=== PATIENT | female | born 1975 | race Caucasian/White ===

== ENCOUNTER 2021-12-02 04:10 | Emergency (ER) | payer OTHER, SELFPAY ==
[2021-12-02 04:11] VITALS: BP 115/66; PULSE 63; RESP 17; TEMP 36.2; O2SAT 98; BMI 41.3
--- NOTE | 2021-12-02 04:33 | RAD_ITS ---
EXAM: XR CHEST, 1 VIEW : 1975 CLINICAL INDICATION: chest pain TECHNIQUE: Frontal view of the chest. This report was created using [employer] report generation technology. COMPARISON: 12/18/12 FINDINGS: LUNGS AND PLEURAL SPACES: Unremarkable. No consolidation or edema. No pneumothorax. No effusion. HEART: Unremarkable. Cardiac silhouette not enlarged. MEDIASTINUM: Central airways and mediastinal contour are unremarkable. BONES/JOINTS: Unremarkable. SOFT TISSUES: Unremarkable. RAD/Chest 1 View (Portable) IMPRESSION: No radiographic evidence of acute cardiopulmonary disease. at 0515 Reported and signed by: Daniele Tejeda MD Electronically Signed: Daniele Tejeda MD at 5:14 EST ,
--- NOTE | 2021-12-02 04:33 | EKG12_ITS ---
Test Reason : DYSRHYTHMIA Blood Pressure : / mmHG Vent. Rate : 054 BPM Atrial Rate : 054 BPM P-R Int : 166 ms QRS Dur : 082 ms QT Int : 480 ms P-R-T Axes : 006 019 012 degrees QTc Int : 455 ms Sinus bradycardia Otherwise normal ECG Confirmed by MEG ANTHONY, JULIA ([id number]), online editor PAGE DIAZ ([id number]) on 12/03/2021 10:11:18 AM Referred By: JEANIE Confirmed By:JULIA WAEVER MD
--- NOTE | 2021-12-02 04:34 | EX.ED.DYSGE1 ---
HPI History of Present Illness Chief Complaint: Hypertension Narrative Narrative: 46-year-old female presenting with multiple symptoms. She was concerned that her blood pressure was up yesterday and she states it was in the 130s over 80s at home. She went to her primary care's office and it did not change. She did not have the medication changes continues on her hydrochlorothiazide 25 mg p.o. daily. She states she woke up from sleep and had a leg cramp and then when she got up to start to walk she had a short time of left flank pain which resolved and then felt nauseous that she was walking down the [place]. She is describing vertiginous symptoms as she is walking. She vomited. She states after she vomited she had diarrhea. She states that this is not a typical for her to have diarrhea after vomiting. She states that she has not been ill prior to this. She does not have fever, chills. Patient states that her last meal was breakfast casserole which she had been eating for over a day. She had this for dinner. She does not have any abdominal pain. Her leg cramp is resolved. Her left flank pain has resolved. [facility] Medical History Arthritis Back pain history of knee scope Knee pain Neck pain Sleep apnea Home Medications ergocalciferol (vitamin D2) [Vitamin D2] 50,000 mcg PO QWEEK 12/02/21 [History Last Taken Unknown] escitalopram oxalate 20 mg PO DAILY 12/02/21 [History Last Taken Unknown] hydrochlorothiazide 25 mg PO DAILY 12/02/21 [History Last Taken Unknown] meclizine 25 mg PO TID PRN #30 tab 12/02/21 [Rx Last Taken Unknown] Allergy/AdvReac Type Severity Reaction Status Date / Time codeine Allergy Hives Verified 12/02/21 04:17 meperidine HCl [From Demerol] Allergy Other Verified 12/02/21 04:17 ondansetron HCl AdvReac Vomiting Verified 12/02/21 04:17 [From Zofran (as hydrochloride)] Social History Smoking Status: Never smoker alcohol intake: current alcohol intake frequency: holidays/special occasions only Alcohol type: other ROS ROS ED ROS Narrative Vertiginous dizziness Constitutional Constitutional ED: Denies chills or fever(s) Eyes Eyes: Denies blurry vision or diplopia ENT ENT ED: Denies rhinorrhea or sore throat Cardiovascular Cardiovascular: Denies chest pain Respiratory/Chest Respiratory/Chest: Reports dyspnea; Denies cough or sputum Gastrointestinal Gastrointestinal: Reports diarrhea, nausea and vomiting; Denies abdominal pain Genitourinary Genitourinary ED: Denies dysuria or hematuria Musculoskeletal Musculoskeletal: Reports back pain Integumentary Denies abscess or rash Neurologic Neurologic: Reports headache(s) Psychiatric Psychiatric: Denies anxiety or depression EXAM Physical Exam Const Vital Signs: 12/02/21 04:11 12/02/21 04:21 12/02/21 04:34 Temperature 97.2 F L Temperature Source Temporal Pulse Rate 63 Respiratory Rate 17 Respiratory Effort Normal Non-Labored Respiratory Pattern Normal Blood Pressure 115/66 Blood Pressure Mean 82 Pulse Ox 98 Oxygen Delivery Method Room Air Room Air Positive well nourished General Appearance ED: NAD; Negative for pallor HEENT Reports moist mucous membranes HEENT Narrative: Reproduction of vertiginous dizziness with modified [place]-Hallpike maneuver. Nystagmus noted. Negative for trauma Eyes PERRL and EOMs intact bilaterally Resp normal respiratory effort and clear to auscultation bilaterally Cardio regular rate and regular rhythm GI normal to inspection, nondistended, normoactive bowel sounds Back/Spine no CVA tenderness Extremity normal to inspection General Extremety ED: Negative for edema or tenderness General Extremity: Negative for edema Neuro oriented x3, CN's II-XII intact bilaterally and no sensory deficits noted Sensorium / Orientation: alert Motor Exam: strength 5/5 throughout Psych mental status grossly normal Skin no rashes or lesions noted General Skin Exam: Negative for jaundice or pallor MDM MDM MDM Narrative Medical decision making narrative: 46-year-old female presenting with chief concern of a stroke or a heart attack. She is not having any chest pain and describes a fleeting episode of left posterior flank pain inferior to the ribs. This is resolved. She also had muscle spasm in the right calf which is resolved. She does not have any focal neurologic deficits. Her NIH stroke scale score is 0. Although she saying she feels a little short of breath she also is feeling dizzy and nauseous. On exam I am able to elicit nystagmus and vertiginous symptoms with modified [place]-Hallpike. I feel this is likely the cause of her symptoms as her blood pressure is normal. Blood pressure is 115/66, heart rate 63, respiratory 17, O2 sat 98%. Lungs are clear to auscultation. Heart regular rate and rhythm without murmur. abdomen soft nontender nondistended. No CVA tenderness. Patient will be given IM Phenergan 12.5 and oral meclizine 25 mg p.o. She states she is still concerned about her heart and wants to have lab work checked an EKG as well as chest x-ray. Her EKG is sinus bradycardia with a ventricular rate of 54 bpm without sign of ischemic change or dysrhythmia. The patient is PERC negative. CBC within normal limits. BMP shows a normal creatinine of 0.88 and a GFR of 74. Potassium slightly low at 3.4 and was replaced orally. High-sensitivity troponin is 4. Patient was given a liter of IV fluids, Phenergan, meclizine and her dizziness did resolve. Given that the patient does not even have chest pain and has normal vital signs with a normal work-up with symptom resolution after being treated for vertigo I believe she does not need a second troponin and does not need any further evaluation here in the emergency department. Patient is discharged home in stable condition. Impression: 1. Muscle cramp 2. Benign positional vertigo 3. Hypokalemia Lab Data Attestation: I reviewed the patient's lab results. Labs: Laboratory Results - last 24 hr 12/02/21 12/02/21 04:20 04:20 WBC 7.8 RBC 5.12 Hgb 14.8 Hct 44.0 MCV 85.9 MCH 28.9 MCHC 33.6 RDW Std Deviation 39.8 RDW Coeff of Anthony 12.8 Plt Count 292 MPV 9.9 Immature Gran % (Auto) 0.300 Neut % (Auto) 51.1 Lymph % (Auto) 38.3 [place] % (Auto) 8.0 Eos % (Auto) 1.7 Baso % (Auto) 0.6 Absolute Neuts (auto) 4.0 Absolute Lymphs (auto) 2.98 Nucleated RBC % 0 Sodium 136 Potassium 3.4 L Chloride 101 Carbon Dioxide 29.0 Anion Gap 6 BUN 18 Creatinine 0.88 Estim Creat Clear Calc 79.33 Est GFR (MDRD) Af Amer 90 Est GFR (MDRD) Non-Af 74 BUN/Creatinine Ratio 20.5 H Glucose 120 H Calcium 9.1 Magnesium 2.0 Troponin I High Sens 4 Radiography Diagnostic Testing: Clinical Impression(s) from Imaging Studies Chest X-Ray 12/02/21 04:33 IMPRESSION: No radiographic evidence of acute cardiopulmonary disease. at 0515 Reported and signed by: Daniele Tejeda MD Electronically Signed: Daniele Tejeda MD at 5:14 EST , Discharge Plan Triage Chief Complaint: Hypertension ED Provider: Zeferino London Dx/Rx/DC Orders Instructions: ED BPV Vertigo, ED Hypokalemia, ED Muscle Spasm, ED Potassium-Rich Foods Prescriptions: New meclizine 25 mg tablet 25 mg PO TID PRN (Reason: dizziness) Qty: 30 RF: 0 No Action escitalopram oxalate 20 mg tablet 20 mg PO DAILY RF: 0 hydrochlorothiazide 25 mg tablet 25 mg PO DAILY RF: 0 ergocalciferol (vitamin D2) [Vitamin D2] 1,250 mcg (50,000 unit) capsule 50,000 mcg PO QWEEK RF: 0 Primary Care Provider: Aura Freire Referrals: Aura Freire DO [Primary Care Provider] - Disposition Disposition: Home, Self Care
[2021-12-02 04:43] LABS: Absolute Lymphocyte Count 2.98 X10^3/uL (0.83-4.51); Basophil# 0.05 X10^3/uL; Basophil% 0.6 % (0-1); Eosinophil# 0.13 X10^3/uL; Eosinophils% 1.7 % (0-5); Hemoglobin 14.8 g/dL (12.0-15.0); Lymphocyte # 2.98 X10^3/ul (0.83-4.51); Lymphocyte % 38.3 % (19-41); Mean Corp Hgb Conc 33.6 g/dL (32-36); Mean Corpuscular Hgb 28.9 pg (27.0-32.0); Mean Corpuscular Volume 85.9 fL (81-99); Mean Platelet Vol. 9.9 fl (6.2-12.0); Monocyte# 0.62 X10^3/uL; NRBC Flagged by Analyzer 0 % (0-5); Neutrophil # 3.98 X10^3/uL (2.7-7.7); Neutrophil % 51.1 % (47-70); Platelet Count 292 K/mm3 (150-450); RBC Distribution Width CV 12.8 % (11.6-14.6); RBC Distribution Width SD 39.8 fl (35.1-43.9); Red Blood Count 5.12 M/mm3 (4.2-5.4); White Blood Count 7.8 K/mm3 (4.4-11.0)
[2021-12-02] MEDS: proMETHazine 25 MG/ML Syringe 12.5 MG IM (04:43)
[2021-12-02] MEDS: 0.9% Normal Saline 1,000 ML 1000 ML IV (04:43)
[2021-12-02] MEDS: Meclizine HCl 25 MG Tablet PO (04:46)
[2021-12-02 05:04] LABS: Anion Gap 6 (5-15); BUN 18 mg/dL (7-18); BUN/Creat Ratio 20.5 RATIO (10-20); Calcium,Total 9.1 mg/dL (8.5-10.1); Chloride 101 mmol/L (98-107); Creatinine, Serum 0.88 mg/dL (0.55-1.02); EST Glomerular Filtration Rate 74 mL/min (>60); Est Glom Filt Rate - Afr Amer 90 mL/min (>60); Estimated Creatinine Clearance 79.33 ml/min; Glucose 120 mg/dL (74-106); Potassium 3.4 mmol/L (3.5-5.1); Sodium Level 136 mmol/L (136-145); Troponin-I HS 4 pg/mL (3.0-54.0)
[2021-12-02] MEDS: Potassium Chloride Oral Tablet 20 MEQ PO (05:11)
[2021-12-02 05:33] VITALS: BP 108/77; PULSE 53; RESP 16; O2SAT 98
== END 2021-12-02 05:34 | disposition home or self-care (01) ==
PROVIDERS: Emergency Provider Student in an Organized Health Care Education/Training Program; PCP Internal Medicine; Visit Provider Student in an Organized Health Care Education/Training Program
DX: H81.10 Benign paroxysmal vertigo, unspecified ear (principal); I10 Essential (primary) hypertension; E87.6 Hypokalemia; R25.2 Cramp and spasm; R19.7 Diarrhea, unspecified; Z79.899 Other long term (current) drug therapy
CPT/HCPCS: 71045; 80048; 83735; 84484; 85025; 93005; 96360; 96372; 99285; J7030; A4216